=== PATIENT | male | born 1980 | race Caucasian/White ===

== ENCOUNTER → 2020-04-19 09:13 | Outpatient (CLI) | payer OTHER, SELFPAY ==
[2020-04-19 09:58] LABS: Add Manual Diff / Slide Review NO; Basophils Absolute Auto 0 /uL (0-100); Basophils Percent Auto 0.5 % (0-2); Eosinophils Absolute Auto 200 /uL (0-450); Eosinophils Percent Auto 2.2 % (2-4); Hematocrit 44.7 % (41-53); Hemoglobin 15.1 g/dL (13.5-17.5); Lymphocytes Absolute Auto 3500 /uL (1100-4500); Lymphocytes Percent Auto 48.1 % (25-40); Mean Corpuscular HGB Conc 33.7 % (30-36); Mean Corpuscular Hemoglobin 29.7 PG (26-34); Mean Corpuscular Volume 88.2 fL (80-100); Monocytes Absolute Auto 600 /uL (0-900); Monocytes Percent Auto 8.4 % (3-14); Neutrophils Absolute Auto 3000 /uL (1500-7000); Neutrophils Percent Auto 40.8 % (50-75); Platelet Count 278 X10^3/uL (150-400); Red Blood Cell Count 5.06 X10^6/uL (4.5-5.9); Red Cell Distribution Width 12.7 % (11.6-14.8); White Blood Cell Count 7.4 X10^3/uL (4.5-11.0)
[2020-04-19 11:50] LABS: Blood Urea Nitrogen 18 mg/dL (9-20); Carbon Dioxide 29 mmol/L (22-32); Chloride 101 mmol/L (98-107); Cholesterol 188 mg/dL (140-199); Estimated Glomerular Filt Rate > 60.0 mL/min (>60); Glucose 83 mg/dL (70-100); HDL Cholesterol 41 mg/dL (40-60); HEMOLYSIS < 15 (0-50); LDL Cholesterol Calculated 100 mg/dL (<100); Potassium 4.6 mmol/L (3.4-5.1); Sodium 138 mmol/L (137-145); Triglycerides 237 mg/dL (35-150)
[2020-04-19 12:06] LABS: Vitamin D 25 Hydroxy (D3) 47.8 ng/mL (30.0-100.0)
== END ==
PROVIDERS: PCP Family Medicine; Referring Provider Family Medicine; Visit Provider Family Medicine
DX: E55.9 Vitamin D deficiency, unspecified (principal); Z13.220 Encounter for screening for lipoid disorders
CPT/HCPCS: 36415; 80048; 80061; 82306; 85025

== ENCOUNTER → 2020-11-25 12:50 | Outpatient (CLI) | payer OTHER, MEDICAID, SELFPAY ==
[2020-11-25] MEDS: COVID-19 VACC, Ad26(JANSSEN)/PF 0.5 ML IM (12:58)
== END ==
PROVIDERS: PCP Family Medicine; Visit Provider Internal Medicine
DX: Z23 Encounter for immunization (principal)
CPT/HCPCS: 0031A; 91303

== ENCOUNTER → 2023-01-23 16:05 | Outpatient (CLI) | payer OTHER, SELFPAY ==
--- NOTE | 2023-01-23 16:10 | DI.RAD.S_ITS ---
PROCEDURE: XR CHEST 2V INDICATIONS: Lymph node swelling and fevers x 1.5 weeks TECHNIQUE: 2 views of the chest were acquired. COMPARISON: None. FINDINGS: Surgical changes and devices: None. Lungs and pleura: Lungs are clear. No pleural effusions or pneumothorax. Mediastinum: Mediastinal contours are normal. Heart size is normal. Bones and chest wall: No suspicious bony abnormalities. Soft tissues appear unremarkable. IMPRESSION: No acute cardiopulmonary disease process. Dictated by: Elinor Duong MD, PhD on 01/23/2023 at 16:46 Approved by: Elinor Duong MD, PhD on 01/23/2023 at 16:46
[2023-01-23 16:39] LABS: Hematocrit 37.6 % (41-53); Mean Corpuscular HGB Conc 34.5 % (30-36); Mean Corpuscular Hemoglobin 29.2 PG (26-34); Mean Corpuscular Volume 84.4 fL (80-100); Platelet Count 226 X10^3/uL (150-400); Red Blood Cell Count 4.45 X10^6/uL (4.5-5.9); Red Cell Distribution Width 12.9 % (11.6-14.8); White Blood Cell Count 3.4 X10^3/uL (4.5-11.0)
[2023-01-23 16:56] LABS: Alanine Aminotransferase 67 IU/L (<50); Albumin 4.5 g/dL (3.5-5.0); Albumin Globulin Ratio 1.6 (1.0-2.8); Alkaline Phosphatase 51 U/L (38-126); Aspartate Aminotransferase 38 IU/L (17-59); BUN Creatinine Ratio 22.8 (6-22); Bilirubin Total 0.7 mg/dL (0.2-1.3); Blood Urea Nitrogen 18 mg/dL (9-20); Calcium 8.9 mg/dL (8.4-10.2); Carbon Dioxide 30 mmol/L (22-32); Chloride 100 mmol/L (98-107); Estimated Glomerular Filt Rate > 60 mL/min (>60); Globulin 2.9 g/dL (1.7-4.1); Glucose 87 mg/dL (70-100); HEMOLYSIS < 15 (0-50); Lipase 60 U/L (23-300); Potassium 4.2 mmol/L (3.4-5.1); Sodium 139 mmol/L (137-145); Total Protein 7.4 g/dL (6.3-8.2)
[2023-01-23 17:07] LABS: Erythrocyte Sedimentation Rate 17 MM/HR (0-15)
[2023-01-23 17:26] LABS: TSH w/ Reflex to FT4 2.44 uIU/mL (0.47-4.68)
[2023-01-23 17:28] LABS: Monotest Negative (Negative)
[2023-01-27 18:19] LABS: 18 kD IgG Band Absent (.); 23 kD IgG Band Absent (.); 28 kD IgG Band Absent (.); 30 kD IgG Band Absent (.); 39 kD IgG Band Absent (.); 41 kD IgG Bands Present (.); 45 kD IgG Band Absent (.); 58 kD IgG Band Absent (.); 66 kD IgG Band Absent (.); IgG P93 AB Absent (.); IgM P23 AB Absent (.); IgM P39 AB Absent (.); IgM P41 AB Absent (.); Lyme IgG Line Blot Interpretat Negative (.); Lyme IgM Line Blot Interpretat Negative (.)
== END ==
PROVIDERS: PCP Family Medicine; Referring Provider Physician Assistant; Visit Provider Physician Assistant
DX: R59.9 Enlarged lymph nodes, unspecified (principal)
CPT/HCPCS: 36415; 71046; 80053; 83690; 84443; 85027; 85651; 86318; 86617

== ENCOUNTER → 2023-01-25 13:39 | Outpatient (CLI) | payer OTHER, SELFPAY ==
[2023-01-25 16:14] LABS: Urine N gonorrhoeae NOT DETECTED
[2023-01-25 16:24] LABS: Urine Chlamydia NOT DETECTED
== END ==
PROVIDERS: PCP Family Medicine; Visit Provider Nurse Practitioner Family
DX: M54.9 Dorsalgia, unspecified (principal); R10.9 Unspecified abdominal pain
CPT/HCPCS: 87086; 87491; 87591

== ENCOUNTER → 2023-01-29 12:47 | Outpatient (CLI) | payer OTHER, SELFPAY ==
--- NOTE | 2023-01-29 12:48 | DI.US.S_ITS ---
PROCEDURE: US ABDOMEN COMPLETE INDICATIONS: EPIGASTRIC PAIN TECHNIQUE: Real-time scanning was performed of the abdominal and retroperitoneal organs, with image documentation. COMPARISON: None. FINDINGS: Liver: Increased echogenicity, with sparing at the gallbladder fossa, consistent with steatosis. In the left hepatic lobe, there is a 1.9 x 0.5 x 2.2 cm hyperechoic region. Gallbladder: No gallbladder stones or sonographic Smart sign. Wall thickness is at the high limits of normal. Biliary ducts: Intrahepatic bile ducts are non-dilated. Extrahepatic bile duct caliber measures 3.4 mm. Normal is 6-7 mm or less in diameter, or 10 mm or less post-cholecystectomy. Pancreas: Visualized portions of the pancreas are sonographically normal. Spleen: Spleen is normal in size and homogeneous in echotexture. Kidneys: Kidneys are normal in size and echotexture. Right kidney measures 12.1 cm long; left kidney measures 10.9 cm long. No hydronephrosis or nephrolithiasis. No solid masses. Aorta: Visualized aorta is normal in caliber at less than 3 cm. Iliacs: Proximal common iliac arteries are normal in caliber at less than 2.5 cm. IVC: Intrahepatic inferior vena cava is patent. Miscellaneous: No free abdominal fluid. IMPRESSION: Mild hepatic steatosis. No cholelithiasis. Linear hyperechoic liver lesion measuring 1.9 x 0.5 x 2.2 cm. Differential includes increased focal steatosis, less likely liver lesion. Consider follow-up with ultrasound in 6 months. Dictated by: Lokesh Degroot M.D. on 01/29/2023 at 14:41 Approved by: Lokesh Degroot M.D. on 01/29/2023 at 14:48
== END ==
PROVIDERS: PCP Family Medicine; Referring Provider Family Medicine; Visit Provider Family Medicine
DX: K76.0 Fatty (change of) liver, not elsewhere classified (principal); R10.13 Epigastric pain
CPT/HCPCS: 76700

== ENCOUNTER → 2023-02-26 07:44 | Outpatient (CLI) | payer OTHER, SELFPAY ==
--- NOTE | 2023-02-26 07:45 | DI.US.S_ITS ---
PROCEDURE: US ABDOMEN LIMITED INDICATIONS: PALPABLE LEFT GROIN LUMP TECHNIQUE: Real-time focused scanning was performed of the groin, with image documentation. COMPARISON: [facility], , US ABDOMEN COMPLETE, 01/29/2023, 12:54. FINDINGS: Left groin fat containing reducible hernia, defect measures approximately 1.9 x 1.2 cm. IMPRESSION: Fat containing left groin hernia. Dictated by: Martin Rose M.D. on 02/26/2023 at 9:34 Approved by: Martin Rose M.D. on 02/26/2023 at 9:35
== END ==
PROVIDERS: PCP Family Medicine; Referring Provider Family Medicine; Visit Provider Family Medicine
DX: K45.8 Other specified abdominal hernia without obstruction or gangrene (principal); R10.32 Left lower quadrant pain
CPT/HCPCS: 76705

== ENCOUNTER 2024-02-12 06:26 | Day surgery (SDC) | payer OTHER, SELFPAY ==
[2024-02-07 09:11] VITALS: BMI 28.7
[2024-02-12] VITALS (8 sets, daily range): BP systolic 126–149; BP diastolic 55–91; PULSE 66–88; RESP 9–20; TEMP 36.2–36.9; O2SAT 89–96; BMI 29.3
[2024-02-12] MEDS: LACTATED RINGERS 1,000 ML 42 ML IV (07:40)
[2024-02-12] MEDS: ACETAMINOPHEN 325 MG TABLET 975 MG PO (07:41)
--- NOTE | 2024-02-12 07:45 | P.HP_ITS ---
History of Present Illness History of Present Illness Date Patient Seen: 02/12/24 Time Patient Seen: 07:45 Chief complaint: Lap left inguinal hernia repair w/mesh Narrative: Nic is a 43-year-old man with a symptomatic left inguinal hernia. See the prior office note for details. No major health changes since the office visit. [facility] Medical History Stress at work Groin pain, chronic, left Groin lump Swelling, lymph nodes Patria rash of groin Screening for hyperlipidemia Vitamin D deficiency Athlete's foot Suspicious nevus Chronic GERD Excessive cerumen in both ear canals Surgical History Hx of tonsillectomy Social History marital status: unknown household members: significant other lives independently: Yes occupational status: employed Smoking Status: Former smoker alcohol intake: current substance use type: does not use Meds Home Medications and Allergies Home Medications Medication Instructions Recorded Confirmed Type No Known Home Medications 11/14/23 11/14/23 History Allergies Allergy/AdvReac Type Severity Reaction Status Date / Time No Known Drug Allergies Allergy Verified 02/12/24 07:26 Exam Vital Signs (past 8 hours): - 02/12/24 07:27 Temperature 98.5 F Pulse Rate 88 Respiratory Rate 18 Blood Pressure 149/91 H Pulse Oximetry 96 Oxygen Delivery Method Room Air Oxygen Delivery Method Room Air Narrative Exam Narrative: Reducible left inguinal hernia Assessment & Plan Assessment and plan (1) Left inguinal hernia: Status: Acute Plan We reviewed the risks and benefits of a laparoscopic left inguinal hernia repair with mesh and he would like to proceed.
[2024-02-12] MEDS: CEFAZOLIN 2 GM/100 ML PREMIX 100 ML IV (07:59)
--- NOTE | 2024-02-12 08:15 | SUR.OPER ---
Supine on pink pad on OR bed, head on pillow, arms padded and tucked at sides, legs uncrossed, safety belt at thigh, tape over blanket over lower legs .
[2024-02-12] MEDS: BUPIVACAINE 0.5% (PF) 30 ML, EPINEPHrine 0.15 MG INJ (08:26)
--- NOTE | 2024-02-12 09:08 | PM.OP.1 ---
Operative Date/Time/Diagnoses Date of procedure: 02/12/24 Time of procedure: 09:08 Pre-op diagnosis: Left inguinal hernia Post-op diagnosis: same Procedure & Clinicians Procedure: Laparoscopic left inguinal hernia repair with mesh Same procedure as scheduled: Yes Surgeon: Delon Staples [employer] Helper: Yury Baker Anesthesia Type: General Operative Notes Procedure in detail: The patient was given preoperative antibiotics. The patient was brought to the operating room, placed on the table in the supine position with the arms tucked and general anesthesia was induced. The abdomen was prepped and draped in the usual fashion. A time-out was performed. A 1 cm transverse incision was created superior to the umbilicus and dissection was carried down to the fascia. The fascia was grasped with a Ramya clamp to elevate the abdominal wall. The fascia was scored transversely with cautery. A Peon clamp was used to luna the peritoneum. The Krystin port was placed and the abdomen was insufflated to 15 mmHg. The camera was inserted, there was no evidence of any injury from the entry. 5 mm ports were placed under direct vision in the mid left and mid right abdomen. The patient was positioned in Trendelenburg. We created left peritoneal flap. The peritoneum was dissected off of the left cord structures and the Finn's ligament was exposed. There was a fat containing direct defect and a small indirect sac as well. A large left Bard mesh was brought in and placed over the defect with the medial edge against Finn's ligament. We then closed the peritoneal flap with a running 3-0 barbed suture. We took one last look around the abdomen and saw no other abnormalities. The suture was removed and accounted for. The 5 mm ports were removed under direct vision. The abdomen was desufflated. The Krystin port was removed. Additional local was injected into the fascia and the fascial incision was closed with 2 interrupted 0 Vicryl sutures. The skin incisions were closed with 4 Monocryl, Steri-Strips and Band-Aids. EBL: 10 mL Yury LANDON provided assistance with exposure, retraction and closure of incisions. Post-operative Condition: stable Disposition: PACU
[2024-02-12] MEDS: OXYCODONE IR 5 MG TABLET PO (09:34)
== END 2024-02-12 10:27 | disposition home or self-care (01) ==
PROVIDERS: PCP Family Medicine; Referring Provider Surgery; Visit Provider Surgery
PROC: 0YQ64ZZ Repair Left Inguinal Region, Percutaneous Endoscopic Approach (ICD-10-PCS; CPT 49650; principal; 2024-02-12 07:45)
DX: K40.90 Unilateral inguinal hernia, without obstruction or gangrene, not specified as recurrent (principal)
CPT/HCPCS: 49650; J0171; J0690; J1100; J1885; J2250; J2405; J2704; J3010